=== PATIENT | female | born 1965 | race Hispanic/Latino ===

== ENCOUNTER 2025-05-06 09:24 | Outpatient (CLI) | payer SELFPAY ==
[2025-05-06 13:09] LABS: #Basophils 0.04 10x3/uL (0.0-0.2); #Eosinophils 0.22 10x3/uL (0.0-0.5); #Monocytes 0.37 10x3/uL (0.0-1.1); #Neutrophils 2.86 10x3/uL (1.5-8.4); %Basophils 0.6 % (0.0-2.0); %Eosinophils 3.6 % (0.0-6.0); %Lymphocytes 43.4 % (18.0-47.0); %Monocytes 6.0 % (0.0-10.0); %Neutrophils 46.2 % (40.0-75.0); Hematocrit 42.8 % (34.9-44.5); Hemoglobin 13.7 g/dL (12.0-15.5); Mean Corpuscular Hemoglobin 28.8 pg (27.0-33.0); Mean Corpuscular Volume 89.9 fL (81.6-98.3); Platelet Count 221 10x3/uL (150-450); Red Blood Cell (RBC) Count 4.76 10x6/uL (3.90-5.03); White Blood Cell (WBC) Count 6.18 10x3/uL (3.5-10.5)
[2025-05-06 13:22] LABS: ALT (SGPT) 17 U/L (Less than 34); AST (SGOT) 17 U/L (11-34); Albumin 4.1 g/dL (3.1-4.5); Alkaline Phosphatase 86 U/L (40-110); Anion Gap 14 mmol/L (10-20); BUN (Urea Nitrogen) 11 mg/dL (9.8-20.1); Bilirubin, Direct 0.2 mg/dL (0.1-0.3); Bilirubin, Total 0.6 mg/dL (0.3-1.2); Calc. Creatinine Clearance 0 mL/min (70-130); Calcium 8.9 mg/dL (7.8-10.44); Carbon Dioxide 25 mmol/L (23-31); Chloride 108 mmol/L (98-107); Glucose 84 mg/dL (80-115); Potassium 4.5 mmol/L (3.5-5.1); Sodium 142 mmol/L (136-145)
== END 2025-05-06 09:25 | disposition home or self-care (01) ==
LOC: CSHLAB 09:24
PROVIDERS: ATTEND Surgery
DX: Z01.818 Encounter for other preprocedural examination (principal)
CPT/HCPCS: 80048; 80076; 85025; 93005; 93010

== ENCOUNTER 2025-05-09 06:17 | Day surgery (SDC) | payer SELFPAY ==
[2025-05-06 09:38] VITALS: BMI 28.3
[2025-05-09] MEDS ORDERED: Bupivacaine/Epinephrine 0.25% 30 ML VIAL ONE (07:35)
[2025-05-09] MEDS ORDERED: SUGAMMADEX SODIUM 200 MG/2 ML VIAL ONE (08:23)
[2025-05-09] MEDS ORDERED: Ondansetron PF 4 MG/2 ML Vial ONE (08:23)
[2025-05-09] MEDS ORDERED: Rocuronium Bromide 10 MG/ML (10ML VIAL) ONE (08:23)
[2025-05-09] MEDS ORDERED: Lidocaine 1% PF 5 ML VIAL ONE (08:23)
[2025-05-09] MEDS ORDERED: PROPOFOL 40 ML ONE (08:23)
[2025-05-09] MEDS ORDERED: Glycopyrrolate 0.2 MG/ML 5 ML SYRINGE ONE (08:41)
[2025-05-09] MEDS ORDERED: CEFAZOLIN 1 GM VIAL ONE (08:44)
[2025-05-09] MEDS ORDERED: HYDROcodone/Acetaminophen 5/325 mg Tablet ONE (11:25)
== END 2025-05-09 11:50 | disposition home or self-care (01) ==
LOC: CSHSDC 06:17
PROVIDERS: ATTEND Surgery
PROC: 0FT44ZZ Resection of Gallbladder, Percutaneous Endoscopic Approach (ICD-10-PCS; principal; 2025-05-09)
DX: K80.10 Calculus of gallbladder with chronic cholecystitis without obstruction (principal)
CPT/HCPCS: 47562; C9776; 88304; C1889; J0690; J1100; J2704; S2900

== ENCOUNTER 2025-06-10 10:21 | Emergency (ER) | payer SELFPAY ==
[2025-06-10 11:18] LABS: #Basophils 0.04 10x3/uL (0.0-0.2); #Eosinophils 0.16 10x3/uL (0.0-0.5); #Monocytes 0.54 10x3/uL (0.0-1.1); #Neutrophils 6.84 10x3/uL (1.5-8.4); %Basophils 0.4 % (0.0-2.0); %Eosinophils 1.8 % (0.0-6.0); %Lymphocytes 15.4 % (18.0-47.0); %Monocytes 6.0 % (0.0-10.0); %Neutrophils 76.1 % (40.0-75.0); Hematocrit 40.5 % (34.9-44.5); Hemoglobin 13.3 g/dL (12.0-15.5); Mean Corpuscular Hemoglobin 28.8 pg (27.0-33.0); Mean Corpuscular Volume 87.7 fL (81.6-98.3); Platelet Count 250 10x3/uL (150-450); Red Blood Cell (RBC) Count 4.62 10x6/uL (3.90-5.03); White Blood Cell (WBC) Count 8.99 10x3/uL (3.5-10.5)
[2025-06-10 11:37] LABS: ALT (SGPT) 67 U/L (Less than 34); AST (SGOT) 137 U/L (11-34); Albumin 3.8 g/dL (3.1-4.5); Alkaline Phosphatase 114 U/L (40-110); Anion Gap 10 mmol/L (10-20); BUN (Urea Nitrogen) 13 mg/dL (9.8-20.1); Bilirubin, Total 1.2 mg/dL (0.3-1.2); Calc. Creatinine Clearance 0 mL/min (70-130); Calcium 9.1 mg/dL (7.8-10.44); Carbon Dioxide 25 mmol/L (23-31); Chloride 108 mmol/L (98-107); Globulin 3.1 g/dL (2.4-3.5); Glucose 115 mg/dL (80-115); Lipase 32 U/L (8-78); Potassium 4.3 mmol/L (3.5-5.1); Sodium 139 mmol/L (136-145)
[2025-06-10 13:06] LABS: INR-International Normal Ratio 1.0; PTT 29.1 sec (22.0-33.0); Prothrombin Time 10.8 sec (9.5-12.1)
[2025-06-10 13:15] LABS: Troponin I Less than 0.010 ng/mL (< 0.028)
[2025-06-10 13:19] LABS: Glucose, Urine (Dipstick) Normal (Negative); Leukocyte Negative (Negative); Protein, Urine (Dipstick) Negative (Neg-Trace); Specific Gravity, Urine 1.015 (1.005-1.030)
[2025-06-10 13:26] LABS: Bacteria/HPF Rare-Few HPF (None Seen); CAUTI Indications for Culture Pelvic or flank pain; RBC/HPF 0-3 HPF (0-3); WBC/HPF None Seen HPF (0-3)
[2025-06-10 13:27] LABS: Urine Culture Reflex No No
[2025-06-10 13:28] LABS: Cocaine Metabolite Screen Negative (Negative); THC/Cannabinoid Screen Negative (Negative); Tricyclic Screen Negative (Negative)
[2025-06-10 13:32] LABS: Acetaminophen Less than 10 mcg/mL (Less than 10); Salicylate Less than 8.0 mg/dL (Less than 8.0)
[2025-06-10] MEDS ORDERED: Ondansetron PF 4 MG/2 ML Vial ONE (14:37)
== END 2025-06-11 03:25 | disposition short-term general hospital (02) ==
LOC: CSHERS 10:21
DX: I72.8 Aneurysm of other specified arteries (principal); R10.84 Generalized abdominal pain; R29.703 NIHSS score 3
CPT/HCPCS: 36415; 70450; 70496; 70498; 71045; 74177; 76856; 80053; 80306; 80307; 81001; 83690; 83880; 84484; 85025; 85610; 85730; 93005; 94760; 96374; 96375; J2272; J2405